=== PATIENT | female | born 1970 | race Two or more races ===

== ENCOUNTER 2018-06-19 10:07 | Outpatient (CLI) | payer OTHER | END 2018-06-19 10:13 | disposition home or self-care (01) | LOC: SONOGRAMA 10:07 | DX: D34 Benign neoplasm of thyroid gland (principal) ==

== ENCOUNTER 2018-07-02 14:15 | Emergency (ER) | payer OTHER ==
[~2018-07-02] VITALS: Ht 162.6 cm; Wt 48.1 kg
[2018-07-02] MEDS ORDERED: INDERAL XL80 MG PO (14:46)
== END 2018-07-02 19:19 | disposition home or self-care (01) ==
LOC: ER 14:15
DX: R00.2 Palpitations (principal)

== ENCOUNTER 2018-12-25 09:35 | Outpatient (CLI) | payer OTHER ==
[~2018-12-25 09:35] MED LIST: INDERAL XL80 MG PO
== END 2018-12-25 09:36 | disposition home or self-care (01) ==
LOC: SONOGRAMA 09:35
DX: E04.1 Nontoxic single thyroid nodule (principal)

== ENCOUNTER 2023-06-14 14:18 | Emergency (ER) | payer OTHER ==
[~2023-06-14] VITALS: Ht 162.6 cm; Wt 45.4 kg
[2023-06-14 17:04] LABS: HEMATOCRIT 35.1 % (36.0-45.00); HEMOGLOBIN 11.8 g/dL (12.0-15.00); MEAN CELL VOLUME 89.5 fL (80.00-100.00); MEAN CORPUSCULAR HEMOGLOBIN 30.1 pg (27.00-32.0); MEAN CORPUSCULAR HGB CONC 33.6 g/dl (32.0-36.0); PLATELET COUNT 210 K/uL (150-450); RED BLOOD COUNT 3.92 M/uL (4.00-6.00); RED CELL DISTRIBUTION WIDTH 13.9 % (11.5-14.5)
[2023-06-14] MEDS ORDERED: ZITHROMAX500 MG PO (18:34)
[2023-06-14] MEDS ORDERED: KETO10TA2 PO (18:48)
== END 2023-06-14 19:09 | disposition home or self-care (01) ==
LOC: ER → EDBD 15:25 → ER 15:25
PROVIDERS: Nurse Practitioner Family
DX: R07.0 Pain in throat (principal); I34.1 Nonrheumatic mitral (valve) prolapse; E04.1 Nontoxic single thyroid nodule; Z20.822 Contact with and (suspected) exposure to COVID-19

== ENCOUNTER 2023-11-18 09:29 | Outpatient (CLI) | payer OTHER ==
[~2023-11-18 09:29] MED LIST changes: +KETO10TA2 PO; +ZITHROMAX500 MG PO
== END 2023-11-18 09:31 | disposition home or self-care (01) ==
LOC: SONOGRAMA 09:29
PROVIDERS: ATTEND Pathology Anatomic Pathology & Clinical Pathology
DX: D44.0 Neoplasm of uncertain behavior of thyroid gland (principal); E04.2 Nontoxic multinodular goiter